=== PATIENT | female | born 2000 | race African-American/Black ===

== ENCOUNTER 2022-02-06 14:05 | Emergency (ER) | payer MEDICAID ==
[~2022-02-06] VITALS: Ht 167.6 cm; Wt 68.0 kg
[2022-02-06] MEDS ORDERED: FAMOTIDINE 20MG/2ML VIAL IV ONE (14:30)
[2022-02-06] MEDS ORDERED: SODIUM CHLORIDE 0.9% 1,000 ML IV ONE (14:30)
[2022-02-06] MEDS ORDERED: METHYLPREDNISOLONE SOD SUCC 125 MG/2 ML VIAL IV ONE (14:30)
[2022-02-06 15:41] LABS: CHLORIDE 113 mEq/L (98-107)
[2022-02-06 16:25] LABS: BASOPHILS % 0.1 % (0.0-2.0); EOSINOPHILS % 0.3 % (0.0-5.0); HEMATOCRIT. 45.3 % (36.0-48.0); HEMOGLOBIN. 14.4 g/dL (12.0-16.0); LYMPHOCYTES % 25.1 % (20.0-50.0); MEAN CORPUSCULAR HEMOGLOBIN 32.1 pg (28.0-32.0); MEAN CORPUSCULAR VOLUME 100.5 fL (81.0-99.0); MEAN PLATELET VOLUME 7.7 fl (7.4-10.4); MONOCYTES % 3.5 % (2.0-8.0); PLATELET 230 x1000/uL (130-400); RED CELL DISTRIBUTION WIDTH 15.6 % (11.6-14.6)
[2022-02-06 16:31] LABS: B-HCG QUANTITATIVE 8436 mIU/mL (<3)
[2022-02-06 17:17] VITALS: BP 92/47
[2022-02-06] MEDS ORDERED: DIPH25CA83 PO (18:49)
[2022-02-06] MEDS ORDERED: P20 MT (18:49)
== END 2022-02-06 19:15 | disposition home or self-care (01) ==
LOC: ER 14:05
DX: O26.892 Other specified pregnancy related conditions, second trimester (principal); Z3A.19 19 weeks gestation of pregnancy; T78.40XA Allergy, unspecified, initial encounter; X58.XXXA Exposure to other specified factors, initial encounter
CPT/HCPCS: 36415; 76805; 80053; 84702; 85025; 86850; 86900; 86901; 93005; 96361; 96374; 96375; 99285; J2930; J3490; J7030